=== PATIENT | male | born 1955 | race African-American/Black ===

== ENCOUNTER 2017-03-17 03:39 | Emergency (ER) | payer MEDICARE, MEDICAID ==
[~2017-03-17] VITALS: Ht 198.1 cm; Wt 86.0 kg
[~2017-03-17 03:39] MED LIST: FLUP2.5T PO
[2017-03-17 03:42] VITALS: BP 142/85
== END 2017-03-17 03:53 | disposition left against medical advice (07) ==
LOC: ER 03:39
DX: H53.8 Other visual disturbances (principal); Z53.21 Procedure and treatment not carried out due to patient leaving prior to being seen by health care provider

== ENCOUNTER 2018-07-20 16:29 | Emergency (ER) | payer OTHER, MEDICAID ==
[~2018-07-20] VITALS: Ht 198.1 cm; Wt 86.3 kg
[2018-07-20 18:55] LABS: BASOPHILS % 0.5 % (0.0-2.0); EOSINOPHILS % 1.6 % (0.0-5.0); HEMATOCRIT. 46.4 % (42.0-52.0); HEMOGLOBIN. 15.7 g/dL (14.0-18.0); LYMPHOCYTES % 30.6 % (20.0-50.0); MEAN CORPUSCULAR HEMOGLOBIN 31.5 pg (28.0-32.0); MEAN CORPUSCULAR VOLUME 93.4 fL (80.0-94.0); MONOCYTES % 6.1 % (2.0-8.0); NEUTROPHILS % 61.2 % (40.0-76.0); PLATELET 243 x1000/uL (130-400); RED BLOOD CELL COUNT 4.97 mill/uL (4.7-6.1); RED CELL DISTRIBUTION WIDTH 13.1 % (11.6-14.6)
[2018-07-20 19:00] LABS: CHLORIDE 105 mEq/L (98-107)
[2018-07-20 19:28] LABS: CLARITY URINE CLEAR (CLEAR); COLOR URINE YELLOW (YELLOW); KETONES URINE NEGATIVE (NEGATIVE); LEUKOCYTE ESTERASE URINE NEGATIVE (NEGATIVE); NITRITE URINE NEGATIVE (NEGATIVE); OCCULT BLOOD URINE NEGATIVE (NEGATIVE); PH URINE 5.5 (4.5-8.0); PROTEIN URINE NEGATIVE (NEGATIVE); SPECIFIC GRAVITY URINE 1.004 (1.005-1.030); UROBILINOGEN URINE 0.2 E.U./dL (0.2-1.0)
[2018-07-20] MEDS ORDERED: IOHEXOL-300 100 ML BOTTLE ONE (20:39)
[2018-07-20 22:00] VITALS: BP 122/78
== END 2018-07-20 22:03 | disposition home or self-care (01) ==
LOC: ER 16:29
DX: K85.90 Acute pancreatitis without necrosis or infection, unspecified (principal); K76.9 Liver disease, unspecified; F31.9 Bipolar disorder, unspecified; F17.200 Nicotine dependence, unspecified, uncomplicated
CPT/HCPCS: 36415; 74177; 80053; 81003; 83690; 85025; 99284; Q9967